=== PATIENT | male | born 1990 | race Caucasian/White ===

== ENCOUNTER 2017-03-27 12:17 | Emergency (ER) | payer SELFPAY ==
[2017-03-27 12:42] LABS: Basophils % (Auto) 0.7 % (0.0-1.8); Eosinophils % (Auto) 0.8 % (0.0-4.3); Hematocrit 48.5 % (35.5-45.6); Hemoglobin 16.5 gm/dl (11.8-15.2); Mean Corpuscular HGB Conc 34 % (32-34); Mean Corpuscular Hemoglobin 31 pg (28-32); Mean Corpuscular Volume 90 fl (84-94); Platelet Count 331 K/mm3 (140-440); Red Blood Count 5.37 M/mm3 (3.65-5.03); Red Cell Distribution Width 13.4 % (13.2-15.2); White Blood Count 5.2 K/mm3 (4.5-11.0)
[2017-03-27 12:48] LABS: Urine Drugs of Abuse Note Disclamer
[2017-03-27 12:57] LABS: Anion Gap 21 mmol/L; BUN/Creatinine Ratio 16; Blood Urea Nitrogen 13 mg/dL (9-20); Calcium 9.8 mg/dL (8.4-10.2); Carbon Dioxide 25 mmol/L (22-30); Chloride 93.7 mmol/L (98-107); Glucose 98 mg/dL (75-100); Potassium 4.3 mmol/L (3.6-5.0); Sodium 135 mmol/L (137-145)
[2017-03-27 13:03] LABS: Bilirubin,Urine NEG (Negative); Blood,Urine NEG (Negative); Ketones,Urine 80 mg/dL (Negative); Leukocyte Esterase,Urine NEG (Negative); Mucus,Urine 3+ /HPF; Nitrite,Urine NEG (Negative)
--- NOTE | 2017-03-27 16:43 | Emergency Department Report ---
ED Psych HPI - General Chief Complaint: Psych Stated Complaint: SUICIDAL Time Seen by Provider: 03/27/17 16:12 Source: patient Mode of arrival: Ambulatory - History of Present Illness Initial Comments: Patient is 26 years old male history of schizophrenia presented today with dilution, patient is stating that there are people are following him and they want to kill him, he is asking to speak to wheeler security coordinator. Patient also stated that he thing that he has lung cancer. Patient stated that he is hearing voices telling him that they wanted to kill him. -: Gradual Associated Psychiatric Symptoms: racing thoughts, auditory hallucinations, delusions History of same: Yes Quality: constant - Related Data Home Medications Medication Instructions Recorded Confirmed Last Taken No Known Home Medications [No 03/27/17 03/27/17 Unknown Reported Home Medications] Allergies Allergy/AdvReac Type Severity Reaction Status Date / Time No Known Allergies Allergy Unverified 03/27/17 12:18 ED Review of Systems ROS: Stated complaint: SUICIDAL Other details as noted in HPI Comment: All other systems reviewed and negative Constitutional: denies: chills, fever Respiratory: denies: cough, orthopnea, shortness of breath, SOB with exertion, SOB at rest, wheezing Cardiovascular: denies: chest pain, palpitations, dyspnea on exertion, orthopnea Gastrointestinal: denies: abdominal pain, nausea, vomiting, diarrhea, constipation, hematemesis, melena, hematochezia Neurological: denies: headache, weakness Psychiatric: auditory hallucinations, visual hallucinations ED Past Medical Hx - Past Medical History Previous Medical History?: No - Surgical History Past Surgical History?: No - Social History Smoking Status: Never Smoker Substance Use Type: None - Medications Home Medications: Home Medications Medication Instructions Recorded Confirmed Last Taken Type No Known Home Medications [No 03/27/17 03/27/17 Unknown History Reported Home Medications] ED Physical Exam - General Limitations: No Limitations General appearance: alert, in no apparent distress, anxious - Head Head exam: Present: atraumatic, normocephalic, normal inspection - Eye Eye exam: Present: normal appearance - ENT ENT exam: Present: normal exam - Neck Neck exam: Present: normal inspection, full ROM. Absent: tenderness - Respiratory Respiratory exam: Present: normal lung sounds bilaterally. Absent: respiratory distress, wheezes, rales, rhonchi, chest wall tenderness - Cardiovascular Cardiovascular Exam: Present: regular rate, normal rhythm, normal heart sounds - GI/Abdominal GI/Abdominal exam: Present: soft, normal bowel sounds. Absent: distended, tenderness, guarding, rebound, rigid, mass, bruit, pulsatile mass, hernia - Extremities Exam Extremities exam: Present: normal inspection, full ROM, normal capillary refill - Back Exam Back exam: Present: normal inspection, full ROM. Absent: tenderness, CVA tenderness (R), CVA tenderness (L) - Neurological Exam Neurological exam: Present: alert, oriented X3, CN II-XII intact, normal gait, reflexes normal - Psychiatric Psychiatric exam: Present: agitated, anxious, manic - Skin Skin exam: Present: warm, intact, normal color ED Course Vital Signs 03/27/17 03/27/17 12:18 13:01 Temperature 98.4 F 98.0 F Pulse Rate 80 79 Respiratory 18 20 Rate Blood Pressure 136/90 Blood Pressure 132/88 [Left] O2 Sat by Pulse 99 100 Oximetry ED Medical Decision Making - Lab Data Result diagrams: 03/27/17 12:29 03/27/17 12:29 Critical care attestation.: If time is entered above; I have spent that time in minutes in the direct care of this critically ill patient, excluding procedure time. ED Disposition Clinical Impression: Acute psychosis Disposition: [id number]/TX-65 PSY HOSP/PSY UNIT Is pt being admited?: No Condition: Stable Referrals: PRIMARY CARE, [Primary Care Provider] - 3-5 Days
--- NOTE | 2017-03-28 13:02 | Consultation ---
History of Present Illness - Reason for Consult Consult date: 03/28/17 Reason for consult: Mental Health Evaluation Requesting physician: KERWIN COLLINS - Chief Complaint Chief complaint: "They are after me" - History of Present Psychiatric Illness 26 y.o. male male presenting to [facility] because he feels like someone is following him. Today patient is cooperative, but anxious with a tangential thought process. He had to be redirected multiple times during the interview. He stated that someone has been following him for 2 months and that's why he lost his job. During the interview he would look around and pause for several minutes before he answer questions, possibly responding to some type of stimuli. His answers are not logical and he's very disorganized. He denies SI/HI 's and AVH's. Per the staff, patient is completing his ADL's along with eating his meals. He cannot confirm or deny recreational drug use and alcohol consumption (etoh). UDS is negative and his alcohol serum WNL. Medications and Allergies Allergies Allergy/AdvReac Type Severity Reaction Status Date / Time No Known Allergies Allergy Unverified 03/27/17 12:18 Home Medications Medication Instructions Recorded Confirmed Last Taken Type No Known Home Medications [No 03/27/17 03/27/17 Unknown History Reported Home Medications] Past psychiatric history - Past Medical History Past Medical History: No medical history Past Surgical History: No surgical history - past Psychiatric treatment and history psychiatric treatment history: Denies a psy hx and a fam psy hx. - Social History Social history: lives with family Mental Status Exam - Vital signs Last Vital Signs Temp 99.1 F 03/27/17 20:00 Pulse 92 H 03/27/17 20:00 Resp 18 03/27/17 20:00 BP 135/85 03/27/17 20:00 Pulse Ox 99 03/27/17 20:00 - Exam Narrative exam: MSE: Appearance: cooperative, anxious Behavior: regular eye contact Speech: regular rate and tone Mood: "I'm good" Affect: dysphoric Thought Process: tangential Thought Content: denies SI/HI's and AVH's, paranoid, disorganized Motor Activity: ambulatory Cognition: A/O x3 Insight: poor Judgment: poor Results Result Diagrams: 03/27/17 12:29 03/27/17 12:29 All other labs normal. Assessment and Plan Assessment and plan: Impression: Unspecified Psychosis. Today patient is cooperative, but anxious with a tangential thought process. Patient experiencing paranoia. DDx: Schizophrenia Paranoid Type Recommendation/Plan: Continue 1013 with placement to [facility] pending transport time. Start Zyprexa 5 mg PO HS for psychosis and Vistaril 25 mg PO BID for anxiety. Discussed possible metabolic side effects of Zyprexa with patient.
[2017-03-28] MEDS ORDERED: BENADRYL IM ONE (13:14)
[2017-03-28] MEDS ORDERED: HALDOL IM ONE (13:14)
[2017-03-28] MEDS ORDERED: ATIVAN IM ONE (13:14)
[2017-03-28] MEDS ORDERED: HYDROGEN PEROXIDE ONE (16:46)
[2017-03-28] MEDS: VISTARIL PO SCH ×2 (17:00→23:33)
--- NOTE | 2017-03-28 20:53 | XRay Report ---
FINAL REPORT PROCEDURE: XR HAND 2V LT TECHNIQUE: LEFT hand radiographs, AP and lateral views. CPT 60487-FF HISTORY: finger pain COMPARISON: No prior studies are available for comparison. FINDINGS: Fracture (s) and/or Dislocation(s): None . Alignment: Normal . Joint space(s): Normal . Soft tissues: Normal . Bone mineralization: Normal . Foreign bodies: None . IMPRESSION: Normal Examination .
[2017-03-29] MEDS: VISTARIL PO SCH (10:13)
--- NOTE | 2017-03-29 11:51 | Progress Note ---
Subjective - Reason for Consult Consult date: 03/29/17 Reason for consult: Psychiatry Follow-up - Chief Complaint Chief complaint: "When can I leave" 26 y.o. male male presenting to [facility] because he feels like someone is following him. Today patient is cooperative during the assessment. The patient is still paranoid and disorganized. He denies SI/HI's and AVH's. Patient refused the Zyprexa last night. Mental Status Exam - Vital signs Last Vital Signs Temp 98.1 F 03/29/17 08:25 Pulse 100 H 03/29/17 08:25 Resp 18 03/29/17 08:29 BP 124/83 03/29/17 08:25 Pulse Ox 100 03/29/17 08:29 - Exam Narrative exam: MSE: Appearance: calm Behavior: regular eye contact Speech: regular rate and tone Mood: "okay" Affect: dysphoric Thought Process: tangential Thought Content: denies SI/HI's and AVH's, paranoid, disorganized Motor Activity: ambulatory Cognition: A/O x3 Insight: poor Judgment: poor Assessment and Plan Impression: Unspecified Psychosis. Today patient is cooperative with a tangential thought process. Patient still experiencing paranoia. DDx: Schizophrenia Paranoid Type Recommendation/Plan: Continue 1013 with placement to [facility] today. Continue Zyprexa 5 mg PO HS for psychosis and Vistaril 25 mg PO BID for anxiety. Discussed possible metabolic side effects of Zyprexa with patient.
[2017-03-29 15:52] VITALS: BP 132/85
== END 2017-03-29 15:51 ==
LOC: ED 12:17 → EEVIPCON 12:17 → ED 03-29 15:51
DX: F23 Brief psychotic disorder (principal)
CPT/HCPCS: 36415; 73120; 80048; 80307; 81001; 85025; 99285; G0480; J1200; J1630; J2060; 80320; Q0177

== ENCOUNTER 2017-05-03 14:11 | Inpatient (IN) | payer OTHER ==
[2017-05-03] MEDS ORDERED: NACL 0.9% 1000 ML 1,000 ML IV ONE ×2 (14:31→17:44)
--- NOTE | 2017-05-03 15:03 | Cat Scan Report ---
CT HEAD WITHOUT CONTRAST INDICATION: Altered mental status. COMPARISON: None similar. FINDINGS: Noncontrast head CT demonstrates normal ventricles and sulci without acute or recent infarct, hemorrhage, mass effect or midline shift. No abnormal extra-axial fluid collections. Posterior fossa structures and basilar cisterns appear within normal limits. Symmetric eye globes. Slight sphenoid sinus mucosal thickening. Clear remainder imaged paranasal sinuses and mastoid air cells. Intact calvarium. Normal overlying scalp soft tissues. Numerous radiopaque dental material incidentally noted. CONCLUSION: No acute intracranial CT abnormality, as described. Thank you for the opportunity to participate in this patient's care.
[2017-05-03 15:23] LABS: Basophils % (Auto) 0.4 % (0.0-1.8); Eosinophils # (Auto) 0.1 K/mm3 (0.0-0.4); Eosinophils % (Auto) 0.6 % (0.0-4.3); Hematocrit 42.7 % (35.5-45.6); Hemoglobin 13.7 gm/dl (11.8-15.2); Lymphocytes # (Auto) 1.3 K/mm3 (1.2-5.4); Mean Corpuscular HGB Conc 32 % (32-34); Mean Corpuscular Hemoglobin 29 pg (28-32); Mean Corpuscular Volume 91 fl (84-94); Monocytes # (Auto) 0.8 K/mm3 (0.0-0.8); Monocytes % (Auto) 6.7 % (0.0-7.3); Platelet Count 312 K/mm3 (140-440)
[2017-05-03 15:39] LABS: Alanine Aminotransferase 61 units/L (7-56); Albumin 4.1 g/dL (3.9-5); BUN/Creatinine Ratio 28; Blood Urea Nitrogen 22 mg/dL (9-20); Calcium 9.7 mg/dL (8.4-10.2); Hemolysis Index 2
[2017-05-03] MEDS ORDERED: SODIUM BICARBONATE IV ONE ×2 (17:44→18:00)
--- NOTE | 2017-05-03 18:03 | Emergency Department Report ---
ED Altered Mental Status HPI - General Chief Complaint: Altered Mental Status Stated Complaint: AMS Time Seen by Provider: 05/03/17 14:24 Source: EMS Mode of arrival: Stretcher Limitations: Altered Mental Status - History of Present Illness Initial Comments: 26-year-old male history of schizophrenia was change in baseline mental status at the present they sent him over to the ED for further evaluation of elevated total CK and possible elevated WBC arrives awake eyes open uncooperative with exam but answering questions nonverbal MD Complaint: altered mental status Context: other (he does have a stable airway good gag reflex awake and alert but nonverbal) - Related Data Home Medications Medication Instructions Recorded Confirmed Last Taken No Known Home Medications [No 03/27/17 05/03/17 Unknown Reported Home Medications] Allergies Allergy/AdvReac Type Severity Reaction Status Date / Time No Known Allergies Allergy Unverified 03/27/17 12:18 ED Review of Systems ROS: Stated complaint: AMS Other details as noted in HPI Comment: Unobtainable due to pts medical conditions ED Past Medical Hx - Past Medical History Previous Medical History?: Yes Hx Psychiatric Treatment: Yes (SI attempt) - Surgical History Past Surgical History?: No - Social History Smoking Status: Never Smoker - Medications Home Medications: Home Medications Medication Instructions Recorded Confirmed Last Taken Type No Known Home Medications [No 03/27/17 05/03/17 Unknown History Reported Home Medications] ED Physical Exam - General Limitations: Altered Mental Status General appearance: alert, in no apparent distress, other (no lethargy awake and alert) - Head Head exam: Present: atraumatic, normocephalic - Eye Eye exam: Present: normal appearance, PERRL, EOMI - ENT ENT exam: Present: normal exam, other (normal airway andno stridor on drooling, stable airway) - Neck Neck exam: Present: normal inspection, full ROM. Absent: tenderness, meningismus - Respiratory Respiratory exam: Present: normal lung sounds bilaterally. Absent: respiratory distress, wheezes, rales, rhonchi, stridor, chest wall tenderness, accessory muscle use, decreased breath sounds, prolonged expiratory - Cardiovascular Cardiovascular Exam: Present: regular rate, normal rhythm, normal heart sounds. Absent: tachycardia, irregular rhythm, rubs, gallop - GI/Abdominal GI/Abdominal exam: Present: soft. Absent: distended, tenderness, guarding, rebound, mass, pulsatile mass - Extremities Exam Extremities exam: Present: normal inspection, normal capillary refill. Absent: pedal edema, joint swelling, calf tenderness - Back Exam Back exam: Present: normal inspection. Absent: CVA tenderness (L), muscle spasm , paraspinal tenderness, vertebral tenderness - Neurological Exam Neurological exam: Present: alert, CN II-XII intact. Absent: motor sensory deficit - Psychiatric Psychiatric exam: Present: other (history of schizophrenia patient uncoop. with exam) ED Course Vital Signs 05/03/17 05/03/17 05/03/17 14:29 14:30 14:35 Temperature 98.7 F Pulse Rate 75 70 75 Respiratory 22 21 24 Rate Blood Pressure Blood Pressure 131/81 [Right] O2 Sat by Pulse 98 99 Oximetry 05/03/17 05/03/17 05/03/17 15:00 15:30 15:56 Temperature Pulse Rate 59 L Respiratory 17 16 Rate Blood Pressure 122/79 127/86 Blood Pressure [Right] O2 Sat by Pulse 98 98 98 Oximetry 05/03/17 05/03/17 05/03/17 16:00 16:30 17:00 Temperature Pulse Rate 66 61 58 L Respiratory 22 20 22 Rate Blood Pressure 125/83 135/85 117/76 Blood Pressure [Right] O2 Sat by Pulse 98 100 100 Oximetry - Reevaluation(s) Reevaluation #1: 05/03/17 18:04 Local clearance labs ordered CT head was read as no acute process per the radiologist study. Bicarbonate given - Lab Data Result diagrams: 05/03/17 15:02 05/03/17 15:02 Lab Results 05/03/17 05/03/17 05/03/17 Range/Units 15:02 15:02 15:02 WBC 11.4 H (4.5-11.0) K/mm3 RBC 4.70 (3.65-5.03) M/mm3 Hgb 13.7 (11.8-15.2) gm/dl Hct 42.7 (35.5-45.6) % MCV 91 (84-94) fl MCH 29 (28-32) pg MCHC 32 (32-34) % RDW 13.0 L (13.2-15.2) % Plt Count 312 (140-440) K/mm3 Lymph % (Auto) 11.0 L (13.4-35.0) % Vermilion % (Auto) 6.7 (0.0-7.3) % Eos % (Auto) 0.6 (0.0-4.3) % Baso % (Auto) 0.4 (0.0-1.8) % Lymph # 1.3 (1.2-5.4) K/mm3 Vermilion # 0.8 (0.0-0.8) K/mm3 Eos # 0.1 (0.0-0.4) K/mm3 Baso # 0.0 (0.0-0.1) K/mm3 Seg Neutrophils % 81.3 H (40.0-70.0) % Seg Neutrophils # 9.3 H (1.8-7.7) K/mm3 Sodium 153 H (137-145) mmol/L Potassium 4.4 (3.6-5.0) mmol/L Chloride 110.7 H (98-107) mmol/L Carbon Dioxide 25 (22-30) mmol/L Anion Gap 22 mmol/L BUN 22 H (9-20) mg/dL Creatinine 0.8 (0.8-1.5) mg/dL Estimated GFR > 60 ml/min BUN/Creatinine Ratio 28 % Glucose 99 (75-100) mg/dL POC Glucose (70-105) Lactic Acid 1.10 (0.7-2.0) mmol/L Calcium 9.7 (8.4-10.2) mg/dL Magnesium 2.30 (1.7-2.3) mg/dL Total Bilirubin 0.60 (0.1-1.2) mg/dL AST 103 H (5-40) units/L ALT 61 H (7-56) units/L Alkaline Phosphatase 82 (35-129) units/L Total Creatine Kinase (55-170) units/L Total Protein 7.5 (6.3-8.2) g/dL Albumin 4.1 (3.9-5) g/dL Albumin/Globulin Ratio 1.2 % TSH (0.270-4.200) mlU/mL Salicylates (2.8-20.0) mg/dL Acetaminophen (10.0-30.0) ug/mL Plasma/Serum Alcohol (0-0.07) gm% 05/03/17 05/03/17 05/03/17 Range/Units 15:02 15:02 15:02 WBC (4.5-11.0) K/mm3 RBC (3.65-5.03) M/mm3 Hgb (11.8-15.2) gm/dl Hct (35.5-45.6) % MCV (84-94) fl MCH (28-32) pg MCHC (32-34) % RDW (13.2-15.2) % Plt Count (140-440) K/mm3 Lymph % (Auto) (13.4-35.0) % Vermilion % (Auto) (0.0-7.3) % Eos % (Auto) (0.0-4.3) % Baso % (Auto) (0.0-1.8) % Lymph # (1.2-5.4) K/mm3 Vermilion # (0.0-0.8) K/mm3 Eos # (0.0-0.4) K/mm3 Baso # (0.0-0.1) K/mm3 Seg Neutrophils % (40.0-70.0) % Seg Neutrophils # (1.8-7.7) K/mm3 Sodium (137-145) mmol/L Potassium (3.6-5.0) mmol/L Chloride (98-107) mmol/L Carbon Dioxide (22-30) mmol/L Anion Gap mmol/L BUN (9-20) mg/dL Creatinine (0.8-1.5) mg/dL Estimated GFR ml/min BUN/Creatinine Ratio % Glucose (75-100) mg/dL POC Glucose (70-105) Lactic Acid (0.7-2.0) mmol/L Calcium (8.4-10.2) mg/dL Magnesium (1.7-2.3) mg/dL Total Bilirubin (0.1-1.2) mg/dL AST (5-40) units/L ALT (7-56) units/L Alkaline Phosphatase (35-129) units/L Total Creatine Kinase (55-170) units/L Total Protein (6.3-8.2) g/dL Albumin (3.9-5) g/dL Albumin/Globulin Ratio % TSH 0.903 (0.270-4.200) mlU/mL Salicylates < 0.3 L (2.8-20.0) mg/dL Acetaminophen < 15.0 (10.0-30.0) ug/mL Plasma/Serum Alcohol (0-0.07) gm% 05/03/17 05/03/17 05/03/17 Range/Units 15:02 15:02 15:41 WBC (4.5-11.0) K/mm3 RBC (3.65-5.03) M/mm3 Hgb (11.8-15.2) gm/dl Hct (35.5-45.6) % MCV (84-94) fl MCH (28-32) pg MCHC (32-34) % RDW (13.2-15.2) % Plt Count (140-440) K/mm3 Lymph % (Auto) (13.4-35.0) % Vermilion % (Auto) (0.0-7.3) % Eos % (Auto) (0.0-4.3) % Baso % (Auto) (0.0-1.8) % Lymph # (1.2-5.4) K/mm3 Vermilion # (0.0-0.8) K/mm3 Eos # (0.0-0.4) K/mm3 Baso # (0.0-0.1) K/mm3 Seg Neutrophils % (40.0-70.0) % Seg Neutrophils # (1.8-7.7) K/mm3 Sodium (137-145) mmol/L Potassium (3.6-5.0) mmol/L Chloride (98-107) mmol/L Carbon Dioxide (22-30) mmol/L Anion Gap mmol/L BUN (9-20) mg/dL Creatinine (0.8-1.5) mg/dL Estimated GFR ml/min BUN/Creatinine Ratio % Glucose (75-100) mg/dL POC Glucose 98 (70-105) Lactic Acid (0.7-2.0) mmol/L Calcium (8.4-10.2) mg/dL Magnesium (1.7-2.3) mg/dL Total Bilirubin (0.1-1.2) mg/dL AST (5-40) units/L ALT (7-56) units/L Alkaline Phosphatase (35-129) units/L Total Creatine Kinase 3298 H (55-170) units/L Total Protein (6.3-8.2) g/dL Albumin (3.9-5) g/dL Albumin/Globulin Ratio % TSH (0.270-4.200) mlU/mL Salicylates (2.8-20.0) mg/dL Acetaminophen (10.0-30.0) ug/mL Plasma/Serum Alcohol < 0.01 (0-0.07) gm% 12//17 Range/Units 16:47 WBC (4.5-11.0) K/mm3 RBC (3.65-5.03) M/mm3 Hgb (11.8-15.2) gm/dl Hct (35.5-45.6) % MCV (84-94) fl MCH (28-32) pg MCHC (32-34) % RDW (13.2-15.2) % Plt Count (140-440) K/mm3 Lymph % (Auto) (13.4-35.0) % Vermilion % (Auto) (0.0-7.3) % Eos % (Auto) (0.0-4.3) % Baso % (Auto) (0.0-1.8) % Lymph # (1.2-5.4) K/mm3 Vermilion # (0.0-0.8) K/mm3 Eos # (0.0-0.4) K/mm3 Baso # (0.0-0.1) K/mm3 Seg Neutrophils % (40.0-70.0) % Seg Neutrophils # (1.8-7.7) K/mm3 Sodium (137-145) mmol/L Potassium (3.6-5.0) mmol/L Chloride (98-107) mmol/L Carbon Dioxide (22-30) mmol/L Anion Gap mmol/L BUN (9-20) mg/dL Creatinine (0.8-1.5) mg/dL Estimated GFR ml/min BUN/Creatinine Ratio % Glucose (75-100) mg/dL POC Glucose (70-105) Lactic Acid 0.90 (0.7-2.0) mmol/L Calcium (8.4-10.2) mg/dL Magnesium (1.7-2.3) mg/dL Total Bilirubin (0.1-1.2) mg/dL AST (5-40) units/L ALT (7-56) units/L Alkaline Phosphatase (35-129) units/L Total Creatine Kinase (55-170) units/L Total Protein (6.3-8.2) g/dL Albumin (3.9-5) g/dL Albumin/Globulin Ratio % TSH (0.270-4.200) mlU/mL Salicylates (2.8-20.0) mg/dL Acetaminophen (10.0-30.0) ug/mL Plasma/Serum Alcohol (0-0.07) gm% - EKG Data -: EKG Interpreted by Me EKG shows normal: sinus rhythm, ST-T waves (early re-pole) - Radiology Data Radiology results: report reviewed - Medical Decision Making Patient's total CK is elevated at this time salicylate Tylenol and alcohol were all negative CT had process patient will need admitted for medical clearance for further evaluation given the elevated total CK and elevated WBC obvious focus of infection is appreciated at this time possibly stress related urinalysis and chest x-ray have not yet been formally entered in the computer although urinalysis was collected chest x-ray has been ordered I discussed case with Dr. Sandoval to evaluate the patient for medical clearance for possible psychiatric evaluation for worsening of his baseline schizophrenia with possible catatonia Critical care attestation.: If time is entered above; I have spent that time in minutes in the direct care of this critically ill patient, excluding procedure time. ED Disposition Clinical Impression: Rhabdomyolysis, Schizophrenia, Elevated WBC count Disposition: OP ADMIT IP TO THIS HOSP Is pt being admited?: Yes Condition: Stable Referrals: DINA PEARSON MD [Primary Care Provider] - 3-5 Days Time of Disposition: 18:08
--- NOTE | 2017-05-03 20:12 | XRay Report ---
FINAL REPORT EXAM: XR CHEST 1V AP HISTORY: elev wbc TECHNIQUE: upright single view chest PRIORS: None. FINDINGS: Cardiac and mediastinal contours are unremarkable. No focal pulmonary infiltrate is identified. No pleural fluid collection seen. Pulmonary vasculature is unremarkable. IMPRESSION: Negative single-view chest
[2017-05-03] MEDS ORDERED: MILK OF MAGNESIA PO PRN ×2 (21:27→21:30)
[2017-05-03] MEDS ORDERED: DULCOLAX PR PRN ×2 (21:27→21:30)
[2017-05-03] MEDS ORDERED: TYLENOL PO PRN ×2 (21:27→21:30)
[2017-05-03] MEDS ORDERED: ZOFRAN IV PRN ×2 (21:27→21:30)
--- NOTE | 2017-05-03 21:27 | History and Physical Report ---
History of Present Illness Date of examination: 05/03/17 Date of admission: 05/03/17 Chief complaint: CC AMS and elevated CPK -sent from senior living History of present illness: [place] 26 y/o male [facility] inmate brought to ED for evaluation of AMS.Patient apparently has been non verba and decreased responsiveness.Also hod Cpk levels were high around 1999.No fever or Chills.No cough or SOB.Patient on psych meds which are not available and not taking. Past History Past Medical History: other (Schizophrenia) Past Surgical History: No surgical history Social history: smoking, full code, other ([facility] inmate) Medications and Allergies Allergies Allergy/AdvReac Type Severity Reaction Status Date / Time No Known Allergies Allergy Unverified 03/27/17 12:18 Home Medications Medication Instructions Recorded Confirmed Last Taken Type No Known Home Medications [No 03/27/17 05/03/17 Unknown History Reported Home Medications] Review of Systems All systems: negative Constitutional: no weight loss, no weight gain, no fever, no chills Ears, nose, mouth and throat: no hoarseness, no sore throat, no swelling in mouth, no swelling in throat Cardiovascular: no chest pain, no orthopnea, no palpitations, no rapid/ irregular heart beat, no syncope, no shortness of breath Respiratory: no cough, no cough with sputum, no excessive sputum, no hemoptysis , no shortness of breath, no dyspnea on exertion Gastrointestinal: no abdominal pain, no nausea, no vomiting, no diarrhea, no constipation Genitourinary Male: no dysuria, no hematuria, no flank pain, no discharge, no urinary frequency, no urinary hesitancy Rectal: no pain Musculoskeletal: no neck stiffness, no neck pain, no shooting arm pain, no arm numbness/tingling, no low back pain Integumentary: no rash, no pruritis, no redness Neurological: no seizures, no syncope Psychiatric: anxiety, change in sleep habits, disorientation, depression, anxiety attacks, difficulties concentrating Endocrine: no cold intolerance, no heat intolerance, no polyphagia, no polydipsia Hematologic/Lymphatic: no easy bruising, no easy bleeding Allergic/Immunologic: no urticaria, no allergic rhinitis, no wheezing Exam - Constitutional Vitals: Temp Pulse Resp BP Pulse Ox 98.7 F 61 18 129/79 100 05/03/17 14:35 05/03/17 19:00 05/03/17 19:00 05/03/17 19:00 05/03/17 19:00 General appearance: Present: no acute distress, well-nourished - EENT Eyes: Present: PERRL ENT: hearing intact, clear oral mucosa - Neck Neck: Present: supple, normal ROM - Respiratory Respiratory effort: normal Respiratory: bilateral: CTA - Cardiovascular Heart rate: 70 Rhythm: regular Heart Sounds: Present: S1 & S2. Absent: rub, click - Extremities Extremities: no ischemia, pulses intact, pulses symmetrical, No edema Peripheral Pulses: within normal limits - Abdominal General gastrointestinal: Present: soft, non-tender, non-distended, normal bowel sounds Male genitourinary: Present: normal - Rectal Rectal Exam: deferred - Integumentary Integumentary: Present: clear, warm, dry - Musculoskeletal Musculoskeletal: gait normal, strength equal bilaterally - Psychiatric Psychiatric: appropriate mood/affect, intact judgment & insight - Neurologic Neurologic: CNII-XII intact, moves all extremities - Allied Health Allied health notes reviewed: nursing Results - Labs CBC & Chem 7: 05/04/17 05:47 05/03/17 15:02 Labs: Laboratory Last Values WBC 11.4 K/mm3 (4.5-11.0) H 05/03/17 15:02 RBC 4.70 M/mm3 (3.65-5.03) 05/03/17 15:02 Hgb 13.7 gm/dl (11.8-15.2) 05/03/17 15:02 Hct 42.7 % (35.5-45.6) 05/03/17 15:02 MCV 91 fl (84-94) 05/03/17 15:02 MCH 29 pg (28-32) 05/03/17 15:02 MCHC 32 % (32-34) 05/03/17 15:02 RDW 13.0 % (13.2-15.2) L 05/03/17 15:02 Plt Count 312 K/mm3 (140-440) 05/03/17 15:02 Lymph % (Auto) 11.0 % (13.4-35.0) L 05/03/17 15:02 [place] % (Auto) 6.7 % (0.0-7.3) 05/03/17 15:02 Eos % (Auto) 0.6 % (0.0-4.3) 05/03/17 15:02 Baso % (Auto) 0.4 % (0.0-1.8) 05/03/17 15:02 Lymph # 1.3 K/mm3 (1.2-5.4) 05/03/17 15:02 [place] # 0.8 K/mm3 (0.0-0.8) 05/03/17 15:02 Eos # 0.1 K/mm3 (0.0-0.4) 05/03/17 15:02 Baso # 0.0 K/mm3 (0.0-0.1) 05/03/17 15:02 Seg Neutrophils % 81.3 % (40.0-70.0) H 05/03/17 15:02 Seg Neutrophils # 9.3 K/mm3 (1.8-7.7) H 05/03/17 15:02 Sodium 153 mmol/L (137-145) H 05/03/17 15:02 Potassium 4.4 mmol/L (3.6-5.0) 05/03/17 15:02 Chloride 110.7 mmol/L (98-107) H 05/03/17 15:02 Carbon Dioxide 25 mmol/L (22-30) 05/03/17 15:02 Anion Gap 22 mmol/L 05/03/17 15:02 BUN 22 mg/dL (9-20) H 05/03/17 15:02 Creatinine 0.8 mg/dL (0.8-1.5) 05/03/17 15:02 Estimated GFR > 60 ml/min 05/03/17 15:02 BUN/Creatinine Ratio 28 % 05/03/17 15:02 Glucose 99 mg/dL (75-100) 05/03/17 15:02 POC Glucose 98 (70-105) 05/03/17 15:41 Lactic Acid 0.90 mmol/L (0.7-2.0) 05/03/17 16:47 Calcium 9.7 mg/dL (8.4-10.2) 05/03/17 15:02 Magnesium 2.30 mg/dL (1.7-2.3) 05/03/17 15:02 Total Bilirubin 0.60 mg/dL (0.1-1.2) 05/03/17 15:02 AST 103 units/L (5-40) H 05/03/17 15:02 ALT 61 units/L (7-56) H 05/03/17 15:02 Alkaline Phosphatase 82 units/L (35-129) 05/03/17 15:02 Total Creatine Kinase 3298 units/L (55-170) H 05/03/17 15:02 Total Protein 7.5 g/dL (6.3-8.2) 05/03/17 15:02 Albumin 4.1 g/dL (3.9-5) 05/03/17 15:02 Albumin/Globulin Ratio 1.2 % 05/03/17 15:02 TSH 0.903 mlU/mL (0.270-4.200) 05/03/17 15:02 Salicylates < 0.3 mg/dL (2.8-20.0) L 05/03/17 15:02 Acetaminophen < 15.0 ug/mL (10.0-30.0) 05/03/17 15:02 Plasma/Serum Alcohol < 0.01 gm% (0-0.07) 05/03/17 15:02 Short CBC 05/03/17 05/04/17 Range/Units 15:02 05:47 WBC 11.4 H 8.3 (4.5-11.0) K/mm3 Hgb 13.7 12.9 (11.8-15.2) gm/dl Hct 42.7 38.8 (35.5-45.6) % Plt Count 312 286 (140-440) K/mm3 BMP 05/03/17 15:02 Sodium 153 H Potassium 4.4 Chloride 110.7 H Carbon Dioxide 25 BUN 22 H Creatinine 0.8 Glucose 99 Calcium 9.7 Cardiac Enzymes 05/03/17 Range/Units 15:02 Total Creatine Kinase 3298 H (55-170) units/L Liver Function 05/03/17 Range/Units 15:02 Total Bilirubin 0.60 (0.1-1.2) mg/dL AST 103 H (5-40) units/L ALT 61 H (7-56) units/L Alkaline Phosphatase 82 (35-129) units/L Albumin 4.1 (3.9-5) g/dL Urine 05/03/17 Range/Units 23:04 Urine Color Yellow (Yellow) Urine pH 6.0 (5.0-7.0) Ur Specific [place] 1.026 (1.003-1.030) Urine Protein <15 mg/dl (Negative) mg/dL Urine Glucose (UA) Neg (Negative) mg/dL - Imaging and Cardiology Chest x-ray: report reviewed (NAF) CT Scan - head: report reviewed (NAF) Assessment and Plan Advance Directives: Yes (Full code) VTE prophylaxis?: Chemical Plan of care discussed with patient/family: Yes - Patient Problems (1) Encephalopathy acute Current Visit: Yes Status: Acute Plan to address problem: Sec coral Underlying Schizophrenia and not on any psych meds (2) Rhabdomyolysis Current Visit: Yes Status: Acute Qualifiers: Rhabdomyolysis type: non-traumatic Qualified Code(s): M62.82 - Rhabdomyolysis Plan to address problem: IV fluids initiated.Check CK regularly (3) UTI (urinary tract infection) Current Visit: Yes Status: Acute Qualifiers: Urinary tract infection type: acute cystitis Plan to address problem: Initiated on Ceftriaxone (4) Schizophrenia Current Visit: Yes Status: Chronic Qualifiers: Schizophrenia type: undifferentiated schizophrenia Qualified Code(s): F20.3 - Undifferentiated schizophrenia Plan to address problem: Will defer to MH regarding medication initiation Started on Zyprexa 5mg po q12 for time being (5) DVT prophylaxis Current Visit: Yes Status: Acute Plan to address problem: on lovenox
[2017-05-03] MEDS ORDERED: MORPHINE IV PRN (21:30)
[2017-05-03] MEDS ORDERED: PERCOCET 5/325 PO PRN (21:30)
[2017-05-03 23:33] LABS: Bacteria,Urine 1+ /HPF (Negative); Bilirubin,Urine NEG (Negative); Blood,Urine SM (Negative); Color,Urine Yellow (Yellow); Mucus,Urine FEW /HPF; Nitrite,Urine NEG (Negative); Protein,Urine <15 mg/dL mg/dL (Negative)
[2017-05-03 23:48] LABS: Amphetamine Screen,Urine PRESUMPTIVE NEGATIVE; Benzodiazepines Screen,Urine PRESUMPTIVE NEGATIVE; Cannabinoid Screen,Urine PRESUMPTIVE NEGATIVE; Cocaine Screen,Urine PRESUMPTIVE NEGATIVE; Methadone Screen,Urine PRESUMPTIVE NEGATIVE; Opiate Screen,Urine PRESUMPTIVE NEGATIVE
[2017-05-04] MEDS: D5NS 1,000 ML IV SCH ×2 (04:12→18:09)
[2017-05-04 06:14] LABS: Basophils % (Auto) 0.4 % (0.0-1.8); Eosinophils # (Auto) 0.2 K/mm3 (0.0-0.4); Eosinophils % (Auto) 2.1 % (0.0-4.3); Hematocrit 38.8 % (35.5-45.6); Hemoglobin 12.9 gm/dl (11.8-15.2); Lymphocytes # (Auto) 1.5 K/mm3 (1.2-5.4); Lymphocytes % (Auto) 18.4 % (13.4-35.0); Mean Corpuscular HGB Conc 33 % (32-34); Mean Corpuscular Hemoglobin 30 pg (28-32); Mean Corpuscular Volume 91 fl (84-94); Monocytes # (Auto) 0.7 K/mm3 (0.0-0.8); Monocytes % (Auto) 8.5 % (0.0-7.3); Platelet Count 286 K/mm3 (140-440); Red Blood Count 4.25 M/mm3 (3.65-5.03); Red Cell Distribution Width 13.1 % (13.2-15.2)
[2017-05-04 06:40] LABS: Alanine Aminotransferase 52 units/L (7-56); Albumin 3.5 g/dL (3.9-5); BUN/Creatinine Ratio 25; Blood Urea Nitrogen 15 mg/dL (9-20); Calcium 9.2 mg/dL (8.4-10.2); Hemolysis Index 11
[2017-05-04] MEDS ORDERED: ROCEPHIN IM SCH (06:45)
[2017-05-04] MEDS: cefTRIAXone 2 GM in NACL 0.9% 20 ML IV SCH (09:46)
[2017-05-04] MEDS ORDERED: NACL 0.9% 1000 ML 2,000 ML IV ONE (10:20)
--- NOTE | 2017-05-04 10:21 | Discharge Summary ---
<LUIS CASTILLO - Last Filed: 05/04/17 12:19> Providers - Providers Date of Admission: 05/03/17 21:27 Date of discharge: 05/04/17 Attending physician: DINA GAYTAN MD 05/04/17 06:38 Consult to Mental Health [CONS] Routine Reason For Exam: schizophrenia Place consult to:: Notified:: Phone number called:: [phone] Was contact made?: Yes If yes, spoke with:: isaac Time called:: 08:15 Primary care physician: DINA PEARSON Hospitalization Condition: Stable Pertinent studies: Head CT revealed no acute intracranial abnormality. Chest x-ray was negative. Hospital course: 26-year-old male history of schizophrenia was change in baseline mental status at the present they sent him over to the ED for further evaluation of elevated total CK and possible elevated WBC arrives awake eyes open uncooperative with exam but answering questions nonverbal Patient was treated with antibiotics and IV fluids. Recommend continue 1013 upon discharge and repeat sodium levels in the morning Discharge Diagnoses Acute encephalopathy Rhabdomyolysis UTI Schizophrenia Disposition: DC/TX-65 PSY HOSP/PSY UNIT Core Measure Documentation - Palliative Care Palliative Care/ Comfort Measures: Not Applicable - Core Measures Any of the following diagnoses?: none Exam - Constitutional Vitals: Temp Pulse Resp BP Pulse Ox 98.0 F 65 18 126/75 98 05/04/17 07:45 05/04/17 07:45 05/04/17 07:45 05/04/17 07:45 05/04/17 07:45 General appearance: Present: no acute distress, well-nourished - EENT Eyes: Present: PERRL ENT: hearing intact, clear oral mucosa - Neck Neck: Present: supple, normal ROM - Respiratory Respiratory effort: normal Respiratory: bilateral: CTA - Cardiovascular Heart Sounds: Present: S1 & S2. Absent: rub, click - Extremities Extremities: pulses symmetrical, No edema Peripheral Pulses: within normal limits - Abdominal General gastrointestinal: Present: soft, non-tender, non-distended, normal bowel sounds Male genitourinary: Present: deferred - Rectal Rectal Exam: deferred - Integumentary Integumentary: Present: clear, warm, dry - Musculoskeletal Musculoskeletal: other (unable to evaluate due to mental status) - Psychiatric Psychiatric: other (unable to evaluate due to mental status) - Neurologic Neurologic: CNII-XII intact, moves all extremities - Allied Health Allied health notes reviewed: nursing Plan Follow up with: DINA PEARSON MD [Primary Care Provider] - 3-5 Days Prescriptions: Ciprofloxacin HCl [Ciprofloxacin TAB] 500 mg PO Q12HR #10 tab <DINA GAYTAN - Last Filed: 05/04/17 14:45> Providers - Providers Date of Admission: 05/03/17 21:27 Attending physician: DINA GAYTAN MD 05/04/17 06:38 Consult to Mental Health [CONS] Routine Reason For Exam: schizophrenia Place consult to:: Notified:: Phone number called:: [phone] Was contact made?: Yes If yes, spoke with:: isaac Time called:: 08:15 Primary care physician: DINA PEARSON Hospitalization Reason for admission: Rhabdomylsis Hospital course: Hypernatermia * Recheck labs in 2-3 days No evidence of seizure, patient likely developed Rhabdo being on the floor, as documented was in the hole for a few days and possible Encephalopathy secondary to lying on the floor in seclusion and developed dilirium. Now resolved. patient is speaking but still slowly, but answered my questions. I saw and evaluated the patient. I agree with the findings and the plan of care as documented in thePhysician assistance~note, with the following corrections and additions. Time spent for discharge: 35 mins Core Measure Documentation - Palliative Care Palliative Care/ Comfort Measures: Not Applicable - Core Measures Any of the following diagnoses?: none - VTE Discharge Requirements Deep Vein Thrombosis/Pulmonary Embolism Present on Admission: No Exam - Physical Exam Narrative exam: VITAL SIGNS: Reviewed. GENERAL: The patient appeared well nourished and normally developed. Vital signs as documented. HEAD: No signs of head trauma. EYES: Pupils are equal. Extraocular motions intact. EARS: Hearing grossly intact. MOUTH: Oropharynx is normal. NECK: No adenopathy, no JVD. CHEST: Chest with clear breath sounds bilaterally. No wheezes, rales, or rhonchi. CARDIAC: Regular rate and rhythm. S1 and S2, without murmurs, gallops, or rubs. VASCULAR: No Edema. Peripheral pulses normal and equal in all extremities. ABDOMEN: Soft, without detectable tenderness. No sign of distention. No rebound or guarding, and no masses palpated. Bowel Sounds normal. MUSCULOSKELETAL: Good range of motion of all major joints. Extremities without clubbing, cyanosis or edema. NEUROLOGIC EXAM: Alert and oriented x 3. No focal sensory or strength deficits. Speech normal. Follows commands. PSYCHIATRIC: Mood normal. SKIN: Multiple skin tattoos - Constitutional Vitals: Temp Pulse Resp BP Pulse Ox 98.0 F 65 18 126/75 98 05/04/17 07:45 05/04/17 07:45 05/04/17 07:45 05/04/17 07:45 05/04/17 07:45 Plan Activity: advance as tolerated, fall precautions Diet: low cholesterol Special Instructions: smoking cessation Additional Instructions: Repeat cpk in 2 days
[2017-05-04] MEDS ORDERED: NACL 0.9% 1000 ML 1,000 ML IV ONE (15:29)
--- NOTE | 2017-05-04 19:59 | Ultrasound Report ---
FINAL REPORT PROCEDURE: Bladder ultrasound. TECHNIQUE: Real-time sonography in multiple planes of the bladder was performed with image documentation. CPT 54901 HISTORY: Urinary retention. COMPARISON: No prior studies are available for comparison. FINDINGS: The bladder appears normal. There is no obvious bladder wall thickening. The bladder volume is approximately 280 milliliters. The patient was either unwilling or unable to void. IMPRESSION: Normal appearing bladder.
--- NOTE | 2017-05-04 20:01 | Ultrasound Report ---
FINAL REPORT PROCEDURE: Renal ultrasound. TECHNIQUE: Real-time sonography in multiple planes of the kidneys, ureters and urinary bladder was performed with image documentation. CPT 46339 HISTORY: Urinary retention. COMPARISON: No prior studies are available for comparison. FINDINGS: The right kidney measures 10.4 centimeters x 5.6 centimeters x 5.1 centimeters. The left kidney measures 10.1 centimeters x 5.4 centimeters x 5.7 centimeters. Both kidneys have normal echogenicity. There are no focal masses. There is no hydronephrosis. There are no renal calcifications. The bladder is unremarkable. IMPRESSION: Normal study.
[2017-05-05] MEDS: D5NS 1,000 ML IV SCH (05:58)
[2017-05-05 08:30] VITALS: BP 123/84
--- NOTE | 2017-05-05 09:47 | Discharge Summary ---
<LUIS CASTILLO - Last Filed: 05/05/17 09:43> Providers - Providers Date of Admission: 05/03/17 21:27 Date of discharge: 05/05/17 Attending physician: DINA GAYTAN MD 05/04/17 06:38 Consult to Mental Health [CONS] Routine Reason For Exam: schizophrenia Place consult to:: Notified:: Phone number called:: [phone] Was contact made?: Yes If yes, spoke with:: isaac Time called:: 08:15 Primary care physician: DINA PEARSON Hospitalization Condition: Stable Pertinent studies: Head CT revealed no acute intracranial abnormality. Chest x-ray was negative. Bladder and renal ultrasound were normal Hospital course: 26-year-old male history of schizophrenia was change in baseline mental status at the present they sent him over to the ED for further evaluation of elevated total CK and possible elevated WBC arrives awake eyes open uncooperative with exam but answering questions nonverbal Patient was treated with antibiotics and IV fluids. Recommend continue 1013 upon discharge and repeat sodium levels in the morning Discharge Diagnoses Acute encephalopathy Rhabdomyolysis UTI Schizophrenia Hyponatremia Urinary retention Disposition: DC/TX-65 PSY HOSP/PSY UNIT Time spent for discharge: 32 mins Core Measure Documentation - Palliative Care Palliative Care/ Comfort Measures: Not Applicable - Core Measures Any of the following diagnoses?: none Exam - Constitutional Vitals: Temp Pulse Resp BP Pulse Ox 98.1 F 60 14 123/84 98 05/05/17 07:21 05/05/17 07:21 05/05/17 07:21 05/05/17 07:21 05/05/17 07:21 General appearance: Present: no acute distress, well-nourished - EENT Eyes: Present: PERRL ENT: hearing intact, clear oral mucosa - Neck Neck: Present: supple, normal ROM - Respiratory Respiratory effort: normal Respiratory: bilateral: CTA - Cardiovascular Heart Sounds: Present: S1 & S2. Absent: rub, click - Extremities Extremities: pulses symmetrical, No edema Peripheral Pulses: within normal limits - Abdominal General gastrointestinal: Present: soft, non-tender, non-distended, normal bowel sounds Male genitourinary: Present: deferred - Rectal Rectal Exam: deferred - Integumentary Integumentary: Present: clear, warm, dry - Musculoskeletal Musculoskeletal: other (unable to evaluate due to mental statu) - Psychiatric Psychiatric: other (unable to evaluate due to mental statu) - Neurologic Neurologic: CNII-XII intact, moves all extremities - Allied Health Allied health notes reviewed: nursing Plan Activity: advance as tolerated, fall precautions Weight Bearing Status: Weight Bear as Tolerated Diet: low fat, low cholesterol, low salt Follow up with: DINA PEARSON MD [Primary Care Provider] - 3-5 Days Prescriptions: Ciprofloxacin HCl [Ciprofloxacin TAB] 500 mg PO Q12HR #10 tab <DINA GAYTAN - Last Filed: 05/05/17 15:32> Providers - Providers Date of Admission: 05/03/17 21:27 Attending physician: DINA GAYTAN MD 05/04/17 06:38 Consult to Mental Health [CONS] Routine Reason For Exam: schizophrenia Place consult to:: Notified:: Phone number called:: [phone] Was contact made?: Yes If yes, spoke with:: isaac Time called:: 08:15 Primary care physician: DINA PEARSON Hospitalization Reason for admission: [facility] Hospital course: I saw and evaluated the patient. I agree with the findings and the plan of care as documented in the Physician Weight Loss Sales Consultant's~note, with the following corrections and additions. Patient urinary symptoms imporved. patient voided without difficult and yielded 900 cc last night and this morning. Exam - Constitutional Vitals: Temp Pulse Resp BP Pulse Ox 98.1 F 60 14 123/84 98 05/05/17 07:21 05/05/17 07:21 05/05/17 07:21 05/05/17 07:21 05/05/17 07:21
[2017-05-05] MEDS: cefTRIAXone 2 GM in NACL 0.9% 20 ML IV SCH (10:33)
--- NOTE | 2017-05-05 16:15 | Query-Altered Level of Consc. ---
Andreina Stanford Koko Date:____05/05/2017 Favio/CONCETTA:___Coleen Phone#:__[phone] Exercise your independent professional judgment when responding to this query. Questions asked do not imply a particular answer is desired or expected. We greatly appreciate your clarification on this issue. Clinical Documentation States: 26 Year old male was admitted on 05/03/2017 for change in baseline mental status. The Discharge summary states "Discharge Diagnoses Acute encephalopathy." Please provide an appropriate diagnosis clarifying the Etiology and Acuity of this clinical scenario: [ x] Metabolic Encephalopathy [ ] Toxic Encephalopathy [ ] Toxic - Metabolic Encephalopathy [ ] Septic Encephalopathy with Sepsis [ ] Septic Encephalopathy without Sepsis [ ] Acute Hepatic Encephalopathy [ ] Subacute Hepatic Encephalopathy [ ] Encephalopathy [ ] Other: [ ] Unable To Determine [ ]Comment/Explanation: Present on Admission: [y ] Yes (Y) [ ] Clinically undeterminable (W) [ ] No (N) Please also document response in your Progress Notes and/or Discharge Summary and indicate if the condition was present on admission. MTDD
== END 2017-05-05 11:10 | DRG 689 ==
LOC: ED 14:11 → EEVIPCON 21:27 → 3A 21:27
PROVIDERS: ADMIT Internal Medicine; ATTEND Internal Medicine
DX: N39.0 Urinary tract infection, site not specified (principal); G93.41 Metabolic encephalopathy; M62.82 Rhabdomyolysis; E87.1 Hypo-osmolality and hyponatremia; F20.9 Schizophrenia, unspecified; R33.9 Retention of urine, unspecified
CPT/HCPCS: 36415; 70450; 71010; 76770; 76857; 80053; 80307; 80320; 81001; 82140; 82550; 82962; 83735; 84443; 85025; 87086; 93005; 93010; 96361; 96374; 99285; G0480; J0696; J7030; J7042